=== PATIENT | female | born 1985 | race Caucasian/White ===

== ENCOUNTER 2016-10-26 15:44 | Emergency (ER) | payer MEDICARE, MEDICAID ==
[2016-10-26 16:31] VITALS: BP 109/61
--- NOTE | 2016-10-26 17:27 | UC ---
Lower Extremity/Ankle HPI - HPI Summary HPI Summary: 31 yo female with lower extr edema and pain x days no cp no sob no chance of has happened in past no hx of heart murmur - History of Current Complaint Chief Complaint: UCLowerExtremity Stated Complaint: ANKLES AND LEGS SWOLLEN AND PAINFUL Time Seen by Provider: 10/26/16 16:47 Hx Last Menstrual Period: "BEGINNING OF OCTOBER" - Allergies/Home Medications Allergies/Adverse Reactions: Allergies Allergy/AdvReac Type Severity Reaction Status Date / Time Gabapentin [From Neurontin] Allergy Swelling Verified 10/26/16 16:31 Ibuprofen Allergy Swelling Verified 10/26/16 16:31 Of Face,Lips,& Throat Milk-related Compounds Allergy Hives/Diff. Verified 10/26/16 16:31 Breathing/I tching Peanut Oil Allergy Hives/Diff. Verified 10/26/16 16:31 Breathing/I tching Penicillins Allergy Hives Verified 10/26/16 16:31 Sulfa Antibiotics Allergy Hives Verified 10/26/16 16:31 Home Medications: Home Medications Water Pill-Otc 2 tab PO TID PRN 10/26/16 [History] PMH/Surg Hx/FS Hx/Imm Hx Previously Healthy: Yes Psychological History: Anxiety Other History Of: Negative For: HIV - Surgical History Surgical History: Yes Surgery Procedure, Year, and Place: CHOLECYSTECTOMY - Family History Known Family History: Positive: Hypertension, Diabetes - Social History Alcohol Use: None Substance Use Type: None Smoking Status (MU): Heavy Every Day Tobacco Smoker Type: Cigarettes Amount Used/How Often: 1/2 PK DAILY Length of Time of Smoking/Using Tobacco: 5 yrs Have You Smoked in the Last Year: Yes Household Exposure Type: Cigarettes Review of Systems Constitutional: Negative Skin: Negative Eyes: Negative ENT: Negative Respiratory: Negative Cardiovascular: Negative Gastrointestinal: Negative Genitourinary: Negative Motor: Negative Neurovascular: Negative Musculoskeletal: Edema Neurological: Negative Psychological: Negative All Other Systems Reviewed And Are Negative: Yes Physical Exam Triage Information Reviewed: Yes Appearance: Well-Appearing, No Pain Distress, Well-Nourished Vital Signs: Initial Vital Signs Temp 97.7 F 10/26/16 16:23 Pulse 85 10/26/16 16:23 Resp 22 10/26/16 16:23 BP 109/61 10/26/16 16:23 Pulse Ox 99 10/26/16 16:23 Eyes: Positive: Conjunctiva Clear ENT: Positive: Hearing grossly normal, Pharynx normal, Nasal congestion, Nasal drainage, Trismus, Muffled/hoarse voice Neck: Positive: Supple, Nontender, No Lymphadenopathy Respiratory: Positive: Lungs clear, Normal breath sounds, No respiratory distress. Negative: Crackles Cardiovascular: Positive: RRR, No Murmur Musculoskeletal: Positive: Edema @ - (+++) pitting pre tibial edema Neurological: Positive: Alert Lower Extremity Course/Dx - Course Course Of Treatment: urine dip (-) for protein - Differential Dx/Diagnosis Provider Diagnoses: lower extremity edema of uncertain cause Discharge - Discharge Plan Condition: Stable Disposition: HOME Prescriptions: Furosemide TAB* [Lasix TAB*] 20 mg PO DAILY #3 tab Patient Education Materials: Leg Edema (ED) Referrals: No Primary Care Phys,NOPCP [Primary Care Provider] - Additional Instructions: rest elevate you need further tested to determine the cause of your swelling your urine test was normal see your MD in 3 days as planned
== END 2016-10-26 17:29 | disposition home or self-care (01) ==
LOC: UCCORT 15:44
DX: R60.0 Localized edema (principal); F41.9 Anxiety disorder, unspecified; Z88.6 Allergy status to analgesic agent; Z88.0 Allergy status to penicillin; Z88.2 Allergy status to sulfonamides; Z90.49 Acquired absence of other specified parts of digestive tract; F17.210 Nicotine dependence, cigarettes, uncomplicated
CPT/HCPCS: 81003; 99212; G0463

== ENCOUNTER 2019-01-17 19:17 | Emergency (ER) | payer MEDICAID, MEDICARE ==
--- NOTE | 2019-01-17 19:31 | ED ---
Upper Extremity Pain - HPI Summary HPI Summary: 33 yo female presents to [facility] with RIGHT hand injury. She tells me that she punched a metal door and now her right 4th and 5th digits are painful and she has decreased ROM due to pain. She tells me that she punched the door out of anger. She is ambidextrous. She has had a boxer's fracture to this hand in the past. Has not taken anything OTC for discomfort. Unsure date of last tetanus - History of Current Complaint Chief Complaint: EDExtremityUpper Stated Complaint: RT HAND INJURY PER EMS Time Seen by Provider: 01/17/19 19:30 Hx Obtained From: Patient Hx Last Menstrual Period: "BEGINNING OF OCTOBER" Severity Initially: Moderate Severity Currently: Moderate - Allergies/Home Medications Allergies/Adverse Reactions: Allergies Allergy/AdvReac Type Severity Reaction Status Date / Time Milk Containing Products Allergy Hives/Diff. Verified 01/17/19 19:28 Breathing/I tching peanut Allergy Hives/Diff. Verified 01/17/19 19:28 Breathing/I tching Penicillins Allergy Hives Verified 01/17/19 19:28 Sulfa (Sulfonamide Allergy Hives Verified 01/17/19 19:28 Antibiotics) PMH/Surg Hx/FS Hx/Imm Hx Endocrine/Hematology History: Denies: Hx Diabetes Cardiovascular History: Denies: Hx Angina, Hx Congestive Heart Failure, Hx Hypertension Respiratory History: Denies: Hx Chronic Obstructive Pulmonary Disease (COPD), Hx Lung Cancer Neurological History: Denies: Hx Headaches, Hx Transient Ischemic Attacks (TIA) Psychiatric History: Denies: Hx Anxiety - Surgical History Surgery Procedure, Year, and Place: CHOLECYSTECTOMY Infectious Disease History: No Infectious Disease History: Denies: Traveled Outside the [place] in Last 30 Days - Family History Known Family History: Positive: Hypertension, Diabetes - Social History Lives: Prison Alcohol Use: None Substance Use Type: Reports: Other Substance Use Comment - Amount & Last Used: suboxone Smoking Status (MU): Never Smoked Tobacco Type: Cigarettes Amount Used/How Often: 1/2 PK DAILY Length of Time of Smoking/Using Tobacco: 5 yrs Have You Smoked in the Last Year: Yes Review of Systems Constitutional: Negative Cardiovascular: Negative Respiratory: Negative Musculoskeletal: Other - Right hand pain Skin: Negative Neurological: Negative Psychological: Normal All Other Systems Reviewed And Are Negative: No Physical Exam - Summary Physical Exam Summary: GENERAL: NAD. WDWN. No pain distress. SKIN: RIGHT HAND: Superficial abrasion to right 4th MCP. CHEST: No accessory muscle use. Breathing comfortably and in no distress. CV: Pulses intact radial and ulnar. Cap refill <2seconds MSK: RIGHT HAND: Moderate edema and ecchymosis at 4th and 5th MCP with TTP. Unable to flex here due to pain. NTTP PIP or DIP. RIGHT WRIST: FROM NTTP No snuffbox tenderness. NEURO: Alert. Sensations intact hand and all fingers. PSYCH: Age appropriate behavior. Triage Information Reviewed: Yes Vital Signs On Initial Exam: Initial Vitals Temp Pulse Resp BP Pulse Ox 98.1 F 120 18 138/83 97 01/17/19 19:22 01/17/19 19:22 01/17/19 19:22 01/17/19 19:22 01/17/19 19:22 Vital Signs Reviewed: Yes Procedures - Splinting Right Upper Extremity Hand-Made Type: orthoglass Splint: ulnar gutter Pre-Proc Neuro Vasc Exam: normal Post-Proc Neuro Vasc Exam: normal Splint Applied by Provider: Placido Morrison - Vital Signs Vital Signs Temp Pulse Resp BP Pulse Ox 01/17/19 19:22 98.1 F 120 18 138/83 97 - Laboratory Lab Statement: Any lab studies that have been ordered have been reviewed, and results considered in the medical decision making process. - Radiology hand XR Radiology Interpretation Completed By: ED Physician Summary of Radiographic Findings: ?nondisplace fracture at 4th digit proximal phalanx Wrist XR Radiology Interpretation Completed By: ED Physician Summary of Radiographic Findings: no fx Course/Dx - Course Course Of Treatment: Discussed results with pt and she prefers to have a splint at this time for comfort. An ulnar gutter splint was applied and she was advised to rest, ice, and elevate her hand to decrease pain and swelling. Will call her tomorrow with official XR results and advise her if she needs to f/u with Orthopedics if positive. Pt voiced understanding and agrees with the plan - Diagnoses Provider Diagnoses: Injury of right hand Discharge ED - Sign-Out/Discharge Documenting (check all that apply): Patient Departure Patient Received Moderate/Deep Sedation with Procedure: No - Discharge Plan Condition: Stable Disposition: HOME Patient Education Materials: Hand Fracture (ED) Referrals: No Primary Care Phys,NOPCP [Primary Care Provider] - Dionisio Taveras MD [Medical Doctor] - 3 Days Additional Instructions: If you develop a fever, shortness of breath, chest pain, new or worsening symptoms - please call your PCP or go to the ED immediately. 1) Rest, Ice, and elevate your hand to reduce pain and swelling 2) Keep the splint clean, dry, and intact 3) There is a question of a fracture to your ring finger on the X-Rays today. If there is a fracture, we will call you in the morning and please follow up with Orthopedics at the number below within 1 week - Billing Disposition and Condition Condition: STABLE Disposition: Home
[2019-01-17] MEDS ORDERED: Tetan/Diph/Pertus SYR(Tdap)* 0.5 ML SYR(BOOSTRIX) use SYR IM ONE (20:15)
[2019-01-17 20:36] VITALS: BP 119/84
== END 2019-01-17 20:35 | disposition home or self-care (01) ==
LOC: ED 19:17
DX: S69.91XA Unspecified injury of right wrist, hand and finger(s), initial encounter (principal); Z23 Encounter for immunization; W22.8XXA Striking against or struck by other objects, initial encounter; Y92.9 Unspecified place or not applicable; F17.210 Nicotine dependence, cigarettes, uncomplicated; Z90.49 Acquired absence of other specified parts of digestive tract; Z79.899 Other long term (current) drug therapy; Z88.0 Allergy status to penicillin; Z88.2 Allergy status to sulfonamides
CPT/HCPCS: 90471; 90715; 99281